=== PATIENT | female | born 1985 | race Caucasian/White ===

== ENCOUNTER 2021-08-20 10:11 | Emergency (ER) | payer OTHER ==
[~2021-08-20] VITALS: Ht 162.6 cm; Wt 54.0 kg
[2021-08-20 10:15] VITALS: BP_SYST 111
[2021-08-20] MEDS ORDERED: KETOROLAC TROMETHAMINE 30 MG VIAL IM ONE (11:00)
[2021-08-20] MEDS ORDERED: LIDOCAINE PATCH 5% 1 EA TP ONE (11:00)
[2021-08-20] MEDS ORDERED: methocarbamoL 500 MG TABLET PO ONE (11:00)
[2021-08-20] MEDS ORDERED: LIDO1ADH77 TP (12:13)
[2021-08-20] MEDS ORDERED: IBUP-1969 PO (12:13)
[2021-08-20] MEDS ORDERED: HYDR-3927 PO (12:13)
[2021-08-20] MEDS ORDERED: HYDROcodone/ACETAMIN 10-325 MG TAB PO ONE (12:15)
[2021-08-20 13:04] VITALS: BP_SYST 111
== END 2021-08-20 13:02 | disposition home or self-care (01) ==
LOC: SED 10:11 → MERGE 10:11 → SED 13:02
DX: G89.29 Other chronic pain (principal); M25.551 Pain in right hip; Z88.8 Allergy status to other drugs, medicaments and biological substances; Z79.899 Other long term (current) drug therapy
CPT/HCPCS: 73502; 81025; 96372; 99284; J1885

== ENCOUNTER 2021-10-03 12:55 | Emergency (ER) | payer OTHER ==
[~2021-10-03] VITALS: Ht 162.6 cm; Wt 53.5 kg
[~2021-10-03 12:55] MED LIST: HYDR-3927 PO; IBUP-1969 PO; LIDO1ADH77 TP
--- NOTE | 2021-10-03 13:03 | NUR ---
MD BRADLEY AT BEDSIDE FOR ASSESS.
[2021-10-03 13:07] VITALS: BP_SYST 134
--- NOTE | 2021-10-03 13:10 | NUR ---
PT TAKEN TO BED FIVE, HAS C/O OF ABDOMINAL PAIN 09/05, N/V . 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 PT HAS HX OF CHOLECYSTECTOMY. RESP E/U. VSS WNL. PT TAKE ZOFRAN PRN. SIDERAILS UP X2. S/O AT BEDSIDE.
[2021-10-03] MEDS ORDERED: LORazepam 2 MG/ML VIAL IVP ONE (13:15)
[2021-10-03] MEDS ORDERED: FAMOTIDINE PF 20 MG/2 ML VIAL IVP ONE (13:15)
[2021-10-03] MEDS ORDERED: NACL 0.9% 1,000 ML IV ONE (13:15)
[2021-10-03] MEDS ORDERED: HALOPERIDOL LACTATE 5 MG/ML VIAL IVP ONE (13:15)
[2021-10-03] MEDS ORDERED: DIPHENHYDRAMINE INJ 50 MG/ML VIAL IVP ONE (13:15)
--- NOTE | 2021-10-03 13:16 | NUR ---
HONORIOAR TO BRITTANY RN FOR MED SURG ROOM 122B. ALL QUESTIONS ANSWERED. PT VSS. NAD NOTED. AAOX4. TO TAKE PATIENT VIA GURNEY FOR CONTINUITY OF CARE.
[2021-10-03 13:56] LABS: BASOPHILS # (AUTO) 0.2 K/uL (0.0-0.2); BASOPHILS % (AUTO) 0.9 % (0.0-2.0); EOSINOPHILS % (AUTO) 0.3 % (0.0-4.0); HEMATOCRIT 40.7 % (36-48); HEMOGLOBIN 13.9 g/dL (12.0-16.0); LYMPHOCYTES # (AUTO) 1.8 K/uL (1.0-5.5); LYMPHOCYTES % (AUTO) 9.3 % (20.5-51.5); MEAN CORPUSCULAR HEMOGLOBIN 30 pg (27-31); MEAN CORPUSCULAR HGB CONC 34 % (32-36); MEAN CORPUSCULAR VOLUME 88 fL (79.0-98.0); MONOCYTES # (AUTO) 0.8 K/uL (0.0-1.0); MONOCYTES % (AUTO) 4.1 % (1.7-9.3); NEUTROPHILS # (AUTO) 16.7 K/uL (1.8-7.7); NEUTROPHILS % (AUTO) 85.4 % (40.0-70.0); PLATELET COUNT (AUTO) 275 K/uL (130-430); RED BLOOD CELL COUNT(AUTO) 4.63 MIL/uL (4.2-6.2); WHITE BLOOD COUNT (AUTO) 19.6 K/uL (4.8-10.8)
[2021-10-03 14:00] LABS: CALCIUM 8.5 mg/dL (8.4-11.0); CREATININE 0.89 mg/dL (0.55-1.30); POTASSIUM 4.1 mmol/L (3.5-5.1)
[2021-10-03 14:06] LABS: ALBUMIN 3.8 g/dL (3.4-4.8); TOTAL BILIRUBIN 0.5 mg/dL (0.0-1.0)
[2021-10-03] MEDS ORDERED: MORPHINE 4 MG INJ. 4 MG/ML VIAL IVP ONE (14:15)
[2021-10-03] MEDS ORDERED: ONDA-8 TL (14:36)
[2021-10-03 15:50] VITALS: BP_SYST 117
--- NOTE | 2021-10-03 15:50 | NUR ---
Patient given written and verbal discharge instructions and verbalizes understanding. ER MD discussed with patient the results and treatment provided. Patient in stable condition. ID arm band removed. IV catheter removed intact and dressing applied, no active bleeding. Rx of zofran given. Patient educated on pain management and to follow up with PMD. Pain Scale . Opportunity for questions provided and answered. Medication side effect fact sheet provided.
== END 2021-10-03 15:50 | disposition home or self-care (01) ==
LOC: SED 12:55
DX: R11.2 Nausea with vomiting, unspecified (principal); R10.13 Epigastric pain; J45.909 Unspecified asthma, uncomplicated; Z88.8 Allergy status to other drugs, medicaments and biological substances; Z79.899 Other long term (current) drug therapy
CPT/HCPCS: 99284; 96374; 96375; 96361; 80053; 83690; 85025; 36415; 93005; G0482; J1200; J3490; J1630; J2270; J7030; J2060